=== PATIENT | male | born 1970 | race Caucasian/White ===

== ENCOUNTER 2025-04-16 10:04 | Inpatient (IN) | payer BC, OTHER ==
[~2025-04-16] VITALS: Ht 170.2 cm; Wt 90.7 kg
[2025-04-16 10:10] VITALS: TEMP 97.5
[2025-04-16 11:44] LABS: BASOPHILS % 0.6 % (0.0-1.0); EOSINOPHILS % 1.0 % (0.0-6.0); LYMPHOCYTES % 8.0 % (18.0-39.1); MONOCYTES % 11.0 % (4.4-11.3); NEUTROPHILS % 78.6 % (38.7-80.0); RED CELL DISTRIBUTION WIDTH 16.8 % (11.7-14.4)
[2025-04-16 11:59] LABS: CORONAVIRUS COVID-19 AG NEGATIVE (NEGATIVE)
[2025-04-16 12:04] LABS: INR 1.09
[2025-04-16 12:10] LABS: EST GLOMERULAR FILTRATION RATE 103.0 ML/MIN (>=60)
[2025-04-16 12:37] LABS: LEUKOCYTE ESTERASE ,URINE TRACE (NEGATIVE); PROTEIN,URINE DIPSTICK 1+ (NEGATIVE); URINE UROBILINOGEN >=8 mg/dL (0.2 - 1)
[2025-04-16] MEDS: KCL 20 MEQ PACKET/ ORAL SOLN PO STA (12:43)
[2025-04-16] MEDS: MAGNESIUM SULFATE 2GM/50ML IV ONE (12:43)
[2025-04-16 12:50] LABS: WBC,URINE (MAN) >50 /HPF (0-5)
[2025-04-16] MEDS: FUROSEMIDE INJ 10 MG/ML 4 ML VIAL IV ONE (13:08)
[2025-04-16] MEDS ORDERED: ONDANSETRON HCL INJ 2MG/ML 2ML 2 MG/ML VIAL IV PRN (13:15)
[2025-04-16] MEDS ORDERED: NITROGLYCERIN 0.4 MG SUBL SL PRN (13:15)
[2025-04-16] MEDS ORDERED: Morphine 2mg Syringe 2 MG/ML SYR IV PRN (13:15)
[2025-04-16] MEDS ORDERED: IOPAMIDOL 370 MG/ML 100 ML INFUS..BTL INJ ONE (14:35)
[2025-04-16 16:22] VITALS: PULSE 85; RESP 18
[2025-04-16 16:43] VITALS: BP 158/76; PULSE 101; RESP 19; TEMP 97.7; O2SAT 100
[2025-04-16 17:17] VITALS: BP 158/76; PULSE 101; RESP 19; TEMP 97.7; O2SAT 100
[2025-04-16 17:36] VITALS: BP 158/76; PULSE 101; RESP 19; TEMP 97.7; O2SAT 100
[2025-04-16] MEDS ORDERED: FUROSEMIDE20 MG PO (17:53)
[2025-04-16] MEDS ORDERED: CLONAZEPAM1 MG PO (17:53)
[2025-04-16] MEDS: ASPIRIN 81 MG CHEW TAB PO ONE ×2 (17:56→18:18)
[2025-04-16 20:00] VITALS: BP 154/77; PULSE 98; RESP 18; TEMP 97.6; O2SAT 100
[2025-04-17] VITALS (7 sets, daily range): BP systolic 126–174; BP diastolic 66–91; PULSE 70–99; RESP 18; TEMP 97.7–98.3; O2SAT 96–99
[2025-04-17] MEDS ORDERED: CLONAZEPAM 1 MG TAB PO PRN (04:45)
[2025-04-17] MEDS: SODIUM CHLORIDE 0.9% 250ML 250 ML ONE (05:04)
[2025-04-17 05:26] LABS: BASOPHILS % 0.5 % (0.0-1.0); EOSINOPHILS % 2.7 % (0.0-6.0); LYMPHOCYTES % 9.0 % (18.0-39.1); MONOCYTES % 11.2 % (4.4-11.3); NEUTROPHILS % 76.1 % (38.7-80.0); RED CELL DISTRIBUTION WIDTH 16.2 % (11.7-14.4)
[2025-04-17 06:03] LABS: CHOL/HDL RATIO 4.4 (3.9-4.7); EST GLOMERULAR FILTRATION RATE 101.0 ML/MIN (>=60); LDL CHOLESTEROL 91.0 MG/DL (60-130)
[2025-04-17] MEDS: ASPIRIN 81 MG ENTERIC COATED PO SCH (08:50)
[2025-04-17] MEDS: FUROSEMIDE INJ 10 MG/ML 2 ML VIAL IV SCH ×2 (08:50→16:04)
[2025-04-17] MEDS: POTASSIUM CHLORIDE 20 MEQ TAB CR PO STA (09:17)
[2025-04-17] MEDS: MAGNESIUM SULFATE 2GM/50ML 50 ML IV ONE (10:47)
[2025-04-17] MEDS: METOPROLOL TARTRATE 25 MG TAB PO SCH (16:04)
[2025-04-18] VITALS: BP 123/86; PULSE 84; RESP 18; TEMP 99.1; O2SAT 96
[2025-04-18 05:18] VITALS: BP 126/69; PULSE 82; RESP 18; TEMP 98.2; O2SAT 100
[2025-04-18 05:58] LABS: BASOPHILS % 0.7 % (0.0-1.0); EOSINOPHILS % 2.7 % (0.0-6.0); LYMPHOCYTES % 10.1 % (18.0-39.1); MONOCYTES % 9.8 % (4.4-11.3); NEUTROPHILS % 76.3 % (38.7-80.0); RED CELL DISTRIBUTION WIDTH 16.6 % (11.7-14.4)
[2025-04-18 06:35] LABS: EST GLOMERULAR FILTRATION RATE 101.0 ML/MIN (>=60)
[2025-04-18 08:51] VITALS: BP 129/69; PULSE 84; RESP 18; TEMP 98.4; O2SAT 95
[2025-04-18 10:05] VITALS: BP 129/69; PULSE 84; RESP 18; TEMP 98.4; O2SAT 95
[2025-04-18] MEDS ORDERED: REGADENOSON 0.4 MG/5 ML SYR IV ONE (11:29)
[2025-04-18] MEDS: MAGNESIUM SULFATE 2GM/50ML 50 ML IV ONE (15:40)
== END 2025-04-18 17:00 | disposition home or self-care (01) | DRG 291 ==
LOC: ER 10:32 → ERHOLD 13:17 → MED/SURG2 16:28
PROVIDERS: ADMIT Internal Medicine; ATTEND Internal Medicine
DX: I11.0 Hypertensive heart disease with heart failure (principal); I50.31 Acute diastolic (congestive) heart failure; J81.1 Chronic pulmonary edema; N39.0 Urinary tract infection, site not specified; I25.10 Atherosclerotic heart disease of native coronary artery without angina pectoris; E83.42 Hypomagnesemia; E87.6 Hypokalemia; K76.0 Fatty (change of) liver, not elsewhere classified; F10.10 Alcohol abuse, uncomplicated; R79.89 Other specified abnormal findings of blood chemistry; Z11.52 Encounter for screening for COVID-19; F90.9 Attention-deficit hyperactivity disorder, unspecified type; F41.9 Anxiety disorder, unspecified; Z86.718 Personal history of other venous thrombosis and embolism; Z82.49 Family history of ischemic heart disease and other diseases of the circulatory system
CPT/HCPCS: 36415; 71045; 71260; 78452; 80053; 80061; 81001; 82550; 83735; 83880; 84484; 85025; 85610; 85730; 93005; 93017; 93306; 99284; A9502; J0696; J1938; J3475; J7050; Q9967